=== PATIENT | male | born 2000 | race Caucasian/White ===

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

== ENCOUNTER 2020-07-19 09:36 | Outpatient (CLI) | payer SELFPAY | END 2020-07-19 09:37 | disposition home or self-care (01) | LOC: COV 09:36 | PROVIDERS: ATTEND Family Medicine | DX: Z20.828 Contact with and (suspected) exposure to other viral communicable diseases (principal) ==

== ENCOUNTER 2021-07-21 17:49 | Emergency (ER) | payer MEDICAID ==
[2021-07-21 17:55] VITALS: BP 150/68
[2021-07-21] MEDS ORDERED: ROPIVACAINE 0.5% PF 30 ML VIAL SUBQ STA (18:06)
--- NOTE | 2021-07-21 18:11 | ED Physician Documentation ---
PD HPI UPPER EXT INJURY - Stated complaint Stated Complaint: LEFT HAND LAC - Chief complaint Chief Complaint: Laceration - History obtained from History obtained from: Patient - History of Present Illness Location: Left, Finger Where injury occurred: Home Timing - onset: How many hours ago (1) Timing - duration: Hours (1) Timing - details: Abrupt onset Pain level max: 5 Pain level now: 4 Improved by: Rest Worsened by: Moving, Palpating Associated symptoms: No: Weakness, Numbness, Tingling, Swelling, Discolored Contributing factors: No: Anticoagulated - Additonal information Additional information: Patient is a 20-year-old male who presents to the emergency department lacerations to the left index and middle finger. This is while he was cutting sweet potatoes today. Worse with movement, better with rest. Patient is right- handed. Not anticoagulated. Tetanus up-to-date. Review of Systems Constitutional: denies: Fever PD PAST MEDICAL HISTORY - Past Medical History Past Medical History: No - Past Surgical History Past Surgical History: No - Present Medications Home Medications: Ambulatory Orders Medication Instructions Recorded Confirmed cephALEXin [Keflex] 500 mg PO Q6H #20 capsule 02/12/17 - Allergies Allergies/Adverse Reactions: Allergies Allergy/AdvReac Type Severity Reaction Status Date / Time No Known Drug Allergies Allergy Verified 07/21/21 17:52 - Social History Does the pt smoke?: Yes Does the pt drink ETOH?: No Does the pt have substance abuse?: Yes - Immunizations Immunizations are current?: Yes Immunizations: TDAP current <10years PD ED PE NORMAL - Vitals Vital signs reviewed: Yes - General General: Alert and oriented X 3, No acute distress - HEENT HEENT: Moist mucous membranes - Derm Derm: Warm and dry - Neuro Neuro: Alert and oriented X 3 PD ED PE EXPANDED - Extremities YUDITH UE/Hands Visual: 1 - laceration (1.5 cm curved flap laceration. Neurovascular intact. Tendons intact. No nail injury.) 2 - laceration (1 cm laceration, superficial, linear. Neurovascular intact. Tendons intact.) Results - Vitals Vitals: Vital Signs - 24 hr 07/21/21 17:52 Temperature 36.5 C Heart Rate 64 Respiratory 16 Rate Blood Pressure 150/68 H O2 Saturation 100 Oxygen O2 Source Room air Procedures - Laceration (location) Left index finger laceration Length in cm: 1.5 Wound type: Curved, Flap, Clean Neurovascular status: Sensory intact, Motor intact, Vascular intact Tendon involvement: Tendon intact Anesthesia: Lidocaine 2% Wound preparation: Irrigated copiously NS, Wound explored, To the base Skin layer closure: Nylon, Interrupted, Size #-0 - enter number (4), Sutures - enter # (6) Other: Patient tolerated well, No complications, Neurovascular intact, Dressing applied, Tetanus UTD L middle finger Length in cm: 1 Wound type: Linear, Superficial Neurovascular status: Sensory intact, Motor intact, Vascular intact Tendon involvement: Tendon intact Anesthesia: Lidocaine 2% Wound preparation: Irrigated copiously NS Skin layer closure: Dermabond (T ring closure system) Other: Patient tolerated well, No complications, Neurovascular intact, Dressing applied, Tetanus UTD PD MEDICAL DECISION MAKING - ED course Complexity details: reviewed results, re-evaluated patient, considered differential, d/w patient ED course: Left index finger laceration was repaired with sutures. The left middle finger laceration was repaired with the T ring closure system and Dermabond. Patient tolerated well. Neurovascularly intact. The left index finger was placed in a splint to help protect of the pad of the digit. Warnings of infection and instructions on wound care given at bedside. Also counseled on how to minimize scarring. Patient counseled regarding signs and symptoms for which I believe and urgent re-evaluation would be necessary. Patient with good understanding of and agreement to plan and is comfortable going home at this time This document was made in part using voice recognition software. While efforts are made to proofread this document, sound alike and grammatical errors may occur. Departure - Departure Disposition: 01 Home, Self Care Clinical Impression: Finger laceration Qualifiers: Encounter type: initial encounter Finger: index finger Damage to nail status: without damage Foreign body presence: without foreign body Laterality: left Qualified Code(s): S61.211A - Laceration without foreign body of left index finger without damage to nail, initial encounter Laceration of middle finger Qualifiers: Encounter type: initial encounter Damage to nail status: without damage Foreign body presence: without foreign body Laterality: left Qualified Code(s): S61.213A - Laceration without foreign body of left middle finger without damage to nail, initial encounter Condition: Good Instructions: ED Laceration Hand Follow-Up: your,doctor in 10-14 days for stitch removal [Other] Comments: Please follow-up with your doctor in 10 to 14 days for suture removal. Otherwise you can return here for removal. Keep the wound clean. Monitor for signs of infection including redness, swelling or drainage from the wound. Return if these are present. You can use Motrin or Tylenol as needed for pain. I would keep the splint in place for the next 2 to 3 days.
[2021-07-21] MEDS ORDERED: LIDOCAINE-MPF 2% 5 ML VIAL SUBQ STA (18:19)
== END 2021-07-21 19:37 | disposition home or self-care (01) ==
LOC: ED 17:49
DX: S61.211A Laceration without foreign body of left index finger without damage to nail, initial encounter (principal); S61.213A Laceration without foreign body of left middle finger without damage to nail, initial encounter; W45.8XXA Other foreign body or object entering through skin, initial encounter; Y93.G1 Activity, food preparation and clean up; Y92.009 Unspecified place in unspecified non-institutional (private) residence as the place of occurrence of the external cause; F17.200 Nicotine dependence, unspecified, uncomplicated
CPT/HCPCS: 12001; 99282

== ENCOUNTER 2023-06-11 22:48 | Emergency (ER) | payer MEDICAID ==
--- NOTE | 2023-06-12 00:22 | XRAY Report ---
PROCEDURE: Knee 4 View LT INDICATIONS: Trauma TECHNIQUE: 4 views of the left knee(s) were acquired. COMPARISON: None. FINDINGS: Bones: No fractures or dislocations. No suspicious bony lesions. Soft tissues: Moderate knee joint effusion. No suspicious soft tissue calcifications . IMPRESSION: No acute bony abnormality. If there remains a high clinical concern for fracture, consider cross-sect ional imaging now. If pain persists, consider repeat x-ray in 10-14 days or cross-sectional imaging. Nonspecific knee effusion present. Reviewed by: Eleazar Renee MD on 06/12/2023 12:21 AM PDT Approved by: Eleazar Renee MD on 06/12/2023 12:21 AM PDT Station ID: [id number]
--- NOTE | 2023-06-12 00:53 | ED Physician Documentation ---
PD HPI LOWER EXT INJURY - Stated complaint Stated Complaint: LT KNEE PX - Chief complaint Chief Complaint: Trauma Ext - History obtained from History obtained from: Patient - Additional information Additional information: HPI from patient. Patient c/o left knee pain, sudden onset approximately 8:30 PM tonight when practicing martial arts. Patient was on the floor when the person with whom he was sparring fell onto him, causing what patient is describing as a crush injury. Pain is exacerbated with movement, weight-bearing (although he has been able to partially-weight bear). Review of Systems Musculoskeletal: reports: Joint pain, Joint swelling, Pain with weight bearing Neurologic: denies: Focal weakness, Numbness PD PAST MEDICAL HISTORY - Past Medical History Past Medical History: No - Past Surgical History Past Surgical History: No - Present Medications Home Medications: Ambulatory Orders Medication Instructions Recorded Confirmed cephALEXin [Keflex] 500 mg PO Q6H #20 capsule 02/12/17 - Allergies Allergies/Adverse Reactions: Allergies Allergy/AdvReac Type Severity Reaction Status Date / Time No Known Drug Allergies Allergy Verified 06/11/23 22:52 - Social History Does the pt smoke?: Yes Does the pt drink ETOH?: No Does the pt have substance abuse?: Yes - Immunizations Immunizations are current?: Yes Immunizations: TDAP current <10years PD ED PE NORMAL - Vitals Vital signs reviewed: Yes - General General: Alert and oriented X 3, No acute distress, Well developed/nourished PD ED PE EXPANDED - Extremities Extremities: Tenderness (mild TTP anteromedial aspect left knee. no direct patellar tenderness. Moderate swelling. no deformity. ), Limited ROM, Swelling, Joint effusion. No: Deformity, Bruising, Abrasion, Laceration Results - Vitals Vitals: Vital Signs - 24 hr 06/11/23 06/12/23 22:52 01:23 Temperature 37.2 C Heart Rate 90 68 Respiratory 18 16 Rate Blood Pressure 140/70 H 123/78 O2 Saturation 98 100 Oxygen O2 Source Room air - Rads (name of study) left knee xrays Relevant Findings:: Prelim report reviewed, EMP independent interpretation of test (I reviewed these images and my interpretation is no fracture, dislocatio n), See rad report PD Medical Decision Making - ED course Complexity details: reviewed results, re-evaluated patient, considered diffe rential, d/w patient ED course: Plain-film xrays left knee do not show evidence of fracture, dislocation. There is a moderate joint effusion on xrays which is apparent on exam. Patient is in NAD. We discussed options for analgesia and patient is comfortable with ibuprofen (given 600mg in ED). He is provided crutches to minimize weight- bearing and knee immobilizer. Return precautions reviewed. Instructed to follow up with PCP within one week for reevaluation. Departure - Departure Disposition: 01 Home, Self Care Clinical Impression: Knee sprain Qualifiers: Encounter type: initial encounter Involved ligament of knee: unspecified ligament Laterality: left Qualified Code(s): S83.92XA - Sprain of unspecified site of left knee, initial encounter Condition: Good Instructions: ED Crutch Walking, ED Immobilizer Knee, ED Effusion Knee, ED Sprain Knee Comments: The x-rays do not show any evidence of fracture nor dislocation. The x-rays do show a moderate knee effusion (swelling in and around the knee, which is apparent on the physical exam). As we discussed, injuries to non-bony structures, such as ligaments, meniscus, tendons, do not show on x-rays. Contact your primary care provider in the morning to arrange for next available appointment for follow-up/reevaluation. Further testing might be needed if your symptoms (pain) and signs (swelling) do not resolve within the next week. You will improve faster by minimizing weight bearing with crutch use during the day, and minimizing movement of the knee by using the knee immobilizer. Forms: PCP List Discharge Date/Time: 06/12/23 01:25
[2023-06-12] MEDS ORDERED: IBUPROFEN 600 MG TABLET PO STA (01:08)
[2023-06-12 01:28] VITALS: BP 123/78; O2SAT 100
== END 2023-06-12 01:25 | disposition home or self-care (01) ==
LOC: ED 22:48
DX: S83.92XA Sprain of unspecified site of left knee, initial encounter (principal); W50.0XXA Accidental hit or strike by another person, initial encounter; Y93.75 Activity, martial arts
CPT/HCPCS: 73564; 99283; A9270